=== PATIENT | female | born 1985 | race Caucasian/White ===

== ENCOUNTER 2016-10-16 17:05 | Emergency (ER) | payer BC ==
[~2016-10-16] VITALS: Ht 162.6 cm; Wt 90.0 kg
[~2016-10-16 17:05] MED LIST: LANTUS2P SC; NOVOLOGP2 SQ
[2016-10-16 17:07] VITALS: PULSE 82; RESP 18; TEMP 97.8; O2SAT 97
--- NOTE | 2016-10-16 18:49 | PD ---
HPI Chief Complaint: Skin Problem Time Seen by Provider: 18:43 Travel History International Travel<30 days: No Contact w/Intl Traveler<30days: No Traveled to known affect area: No History of Present Illness HPI 31-year-old female presents to the emergency room for evaluation of an abscess to her right anterior abdominal wall that started about one week ago. Patient states on day 1 there was a white head that she popped and was able to express purulent drainage but since then the redness, swelling, and pain has been worsening. Patient denies fever, chills, nausea, and vomiting. Denies history of abscess. No streaking. PFSH Past Medical History Diabetes: Yes (insulin dependent ) Immunizations Current: No ?: Not Past Surgical History Cholecystectomy: Yes Social History Alcohol Use: No Tobacco Use: No Substance Use: No Allergies-Medications (Allergen,Severity, Reaction): Coded Allergies: Penicillin (Verified Allergy, Severe, Rash, 10/16/16) Reported Meds & Prescriptions Reported Meds & Active Scripts Active No Active Prescriptions or Reported Medications Review of Systems Except as stated in HPI: all other systems reviewed are Neg Physical Exam Narrative GENERAL: Well-nourished, well-developed female in no acute distress. Afebrile. Ambulatory. SKIN: Warm and dry. There is an indurated area in the right anterior abdominal wall which measures about 2 cm in diameter. It is fluctuant with pointing and slight spontaneous drainage. There is a zone of inflammation around it but no lymphangitis. HEAD: Normocephalic. EYES: No scleral icterus. No injection or drainage. NECK: Supple, trachea midline. No JVD or lymphadenopathy. Data Data Last Documented VS Vital Signs Date Time Temp Pulse Resp B/P Pulse Ox O2 Delivery O2 Flow Rate FiO2 10/16/16 17:07 97.8 82 18 97 Room Air MDM Medical Decision Making Medical Screen Exam Complete: Yes Emergency Medical Condition: Yes Medical Record Reviewed: Yes Differential Diagnosis Abscess versus folliculitis versus hidradenitis suppurativa Narrative Course 31-year-old female presents to the emergency room for evaluation of an abscess to her right anterior abdominal wall that started 1 week ago. Patient states it was spontaneously draining on its own but seems to be worsening. No systemic signs of infection. Vital signs stable. Patient resting comfortably in bed. Physical exam reveals a recent abscess with surrounding inflammation but no lymphangitis in the right anterior abdominal wall. Abscesses drained, see procedure note for details. Return to the emergency room for worsening symptoms. She understands and agrees to this plan. Procedures Procedure Narrative INCISION AND DRAINAGE OF ABSCESS: The area was prepped and was sterilely draped. A subcutaneous wheal of 1% lidocaine with epinephrine with a total number 4 mL was used to anesthetize the area properly. A number 11 scalpel was used to make a 1 cm incision across the area of the abscess. The abscess was drained, complex loculations were broken down, and irrigated with normal saline. Cultures were obtained. Sterile dressing applied. Diagnosis Primary Impression: Cutaneous abscess of abdominal wall Referrals: Primary Care Physician Patient Instructions: Abscess (ED), General Instructions Additional Instructions: Rest and drink plenty of fluids. Take Bactrim as directed, until gone. Follow up with a primary care physician. Return to emergency room for worsening symptoms, as discussed. Med/Other Pt SpecificInfo: Prescription(s) given Scripts No Active Prescriptions or Reported Meds Disposition: 01 DISCHARGE HOME Condition: Stable Leticia Gordon Oct 16, 2016 18:49
[2016-10-16] MEDS ORDERED: BACT800T5 PO (18:50)
== END 2016-10-16 19:00 | disposition home or self-care (01) ==
LOC: NEPB 17:05
DX: L02.211 Cutaneous abscess of abdominal wall (principal); E11.9 Type 2 diabetes mellitus without complications; Z79.4 Long term (current) use of insulin
CPT/HCPCS: 10060; 86403; 87070; 87186; 87205

== ENCOUNTER → 2016-11-08 | Day surgery (SDC) | payer BC ==
[~2016-11-08] MED LIST changes: +BACT800T5 PO; +DEXAMETHASONE SOD PHOS 4 MG/ML VIAL ONE; +DEXTROSE 50% IN WATER 50 ML SYRINGE ONE; +EPINEPHrine HCL (1:1000) 1 MG/ML VIAL ONE; +LACTATED RINGER'S 1000 ML INJ 1,000 ML ONE; -LANTUS2P SC; +MIDAZOLAM HCL 2 MG/2 ML VIAL ONE; +MOXIFLOXACIN 0.5% OPHT SOLN 3 ML BTL ONE; -NOVOLOGP2 SQ; +ONDANSETRON HCL 4 MG/2 ML VIAL IV PUSH ONE; +PHENYLEPHRINE HCL 10% OPTH SOLN 5 ML BTL ONE; +PROPOFOL 200 MG/20 ML AMP IV ONE; +SODIUM CHLORIDE 0.9% INJ 10 ML ONE; +TETRACAINE 0.5% OPTH SOLN 15 ML BTL ONE; +TRIAMCINOLONE ACETONIDE 40 MG/ML VIAL ONE; +prednisoLONE ACETATE 1% OPHT SUSP 5 ML BTL ONE
--- NOTE | 2016-11-15 20:20 | MP ---
cc: RONEY JORDAN MD DATE OF SURGERY 11/09/2016 POSTOPERATIVE DIAGNOSIS Proliferative diabetic retinopathy, tractional retinal detachment, vitreous hemorrhage right eye. PROCEDURE Pars plana vitrectomy, tractional retinal detachment repair, endolaser, air-fluid exchange, right eye. COMPLICATIONS None BLOOD LOSS Less than 1 cc ANESTHESIA General, Dr. Vu INDICATIONS FOR PROCEDURE This is a pleasant young lady who presented with severe vision loss on her right eye. The patient was found to have a tractional retinal detachment, vitreous hemorrhage which was secondary to proliferative diabetic retinopathy, and severe retinal ischemia. The patient elected for surgery in hopes to salvage any possible vision. PROCEDURE NOTE After informed consent was obtained, the patient brought to the operating room, general anesthesia was established. The right eye was prepped and draped in a sterile fashion with Betadine in the conjunctival fornix. A three port pars plana vitrectomy was established with a self-retaining infusion cannula. Core vitreous was evacuated. The tractional retinal detachment was circumscribed and peripheral vitreous traction relieved. The tractional complexes were dissected free from the underlying retina and optic nerve. The retina had renewed mobility and allowed clear view to the macula and optic nerve. Endolaser was applied. Scleral depressive examination revealed no untreated retinal holes, tears or detachments. Partial air-fluid exchange was carried out. Trocars were removed and sclerotomies closed. Subconjunctival injection of Ancef and dexamethasone were given. The eye was patched with Tobramycin ointment. The patient was brought to the recovery room in stable condition and can continue followup with [facility] for her postoperative care. MD KARMA Wren/CORINNA /7:25 AM /8:14 PM JAVAN
== END | disposition home or self-care (01) ==
LOC: ESDC 06:53
PROVIDERS: ATTEND Ophthalmology
DX: E11.3591 Type 2 diabetes mellitus with proliferative diabetic retinopathy without macular edema, right eye (principal); H33.21 Serous retinal detachment, right eye; H43.11 Vitreous hemorrhage, right eye
CPT/HCPCS: 00145; 67113; 82948; J0171; J1100; J2250; J2405; J3010; J3301; J7120

== ENCOUNTER 2017-05-19 15:41 | Emergency (ER) | payer SELFPAY ==
[~2017-05-19] VITALS: Ht 162.6 cm; Wt 92.0 kg
[~2017-05-19 15:41] MED LIST changes: -DEXAMETHASONE SOD PHOS 4 MG/ML VIAL ONE; -DEXTROSE 50% IN WATER 50 ML SYRINGE ONE; -EPINEPHrine HCL (1:1000) 1 MG/ML VIAL ONE; -LACTATED RINGER'S 1000 ML INJ 1,000 ML ONE; -MIDAZOLAM HCL 2 MG/2 ML VIAL ONE; -MOXIFLOXACIN 0.5% OPHT SOLN 3 ML BTL ONE; -ONDANSETRON HCL 4 MG/2 ML VIAL IV PUSH ONE; -PHENYLEPHRINE HCL 10% OPTH SOLN 5 ML BTL ONE; -PROPOFOL 200 MG/20 ML AMP IV ONE; -SODIUM CHLORIDE 0.9% INJ 10 ML ONE; -TETRACAINE 0.5% OPTH SOLN 15 ML BTL ONE; -TRIAMCINOLONE ACETONIDE 40 MG/ML VIAL ONE; -prednisoLONE ACETATE 1% OPHT SUSP 5 ML BTL ONE
--- NOTE | 2017-05-19 17:42 | PD ---
HPI Chief Complaint: Chest Pain Time Seen by Provider: 17:30 Travel History International Travel<30 days: No Contact w/Intl Traveler<30days: No Traveled to known affect area: No History of Present Illness HPI 31-year-old female with history of insulin dependent diabetes here for evaluation of chest pain. The patient reports that for the last 2 weeks she has been having intermittent left-sided chest pains. Pain is now more constant , worse with movements and heavy lifting. She is unable to describe the pain, but states that it radiates to her back and is moderate. No dyspnea. No fevers , chills, cough, or recent illness. No known history of cardiac disease. No history of DVT or PE. PFSH Past Medical History Diabetes: Yes (TYPE 2) Patient Takes Glucophage: No Immunizations Current: No ?: Unknown LMP: 04/28/17 Past Surgical History Cholecystectomy: Yes Eye Surgery: Yes (retinal surgery) Social History Alcohol Use: No Tobacco Use: Yes (5 cig) Substance Use: No Allergies-Medications (Allergen,Severity, Reaction): Coded Allergies: Penicillin (Verified Allergy, Severe, Rash, 05/19/17) Reported Meds & Prescriptions Reported Meds & Active Scripts Active Bactrim DS (Sulfamethoxazole-Trimethoprim) 800-160 Mg Tab 1 Tab PO BID Review of Systems Except as stated in HPI: all other systems reviewed are Neg Physical Exam Narrative GENERAL: Well-developed, well-nourished, comfortable, no apparent distress. SKIN: Focused skin assessment warm/dry. HEAD: Atraumatic. Normocephalic. EYES: Pupils equal and round. No scleral icterus. No injection or drainage. ENT: Mucous membranes pink and moist. NECK: Trachea midline. No JVD. CARDIOVASCULAR: Regular rate and rhythm. No murmur appreciated. RESPIRATORY: No accessory muscle use. Clear to auscultation. Breath sounds equal bilaterally. GASTROINTESTINAL: Abdomen soft, non-tender, nondistended. MUSCULOSKELETAL: No obvious deformities. No clubbing. No cyanosis. No edema. NEUROLOGICAL: Awake and alert. No obvious cranial nerve deficits. Motor grossly within normal limits. Normal speech. PSYCHIATRIC: Appropriate mood and affect; insight and judgment normal. Data Data Last Documented VS Vital Signs Date Time Temp Pulse Resp B/P Pulse Ox O2 Delivery O2 Flow Rate FiO2 05/19/17 18:10 99 Room Air Orders Complete Blood Count With Diff (05/19/17 17:39) Comprehensive Metabolic Panel (05/19/17 17:39) D-Dimer (05/19/17 17:39) Ckmb (Isoenzyme) Profile (05/19/17 17:39) Troponin I (05/19/17 17:39) Iv Access Insert/Monitor (05/19/17 17:39) Electrocardiogram (05/19/17 17:39) Ecg Monitoring (05/19/17 17:39) Oximetry (05/19/17 17:39) Oxygen Administration (05/19/17 17:39) Chest, Single Ap (05/19/17 17:39) Sodium Chloride 0.9% Flush (Ns Flush) (05/19/17 17:45) Ed Urine Pregnancytest Poc (05/19/17 17:39) Ketorolac Inj (Toradol Inj) (05/19/17 18:15) Labs Laboratory Tests Test 05/19/17 05/19/17 18:05 19:19 White Blood Count 12.5 TH/MM3 Red Blood Count 4.81 MIL/MM3 Hemoglobin 13.1 GM/DL Hematocrit 38.2 % Mean Corpuscular Volume 79.4 FL Mean Corpuscular Hemoglobin 27.3 PG Mean Corpuscular Hemoglobin 34.3 % Concent Red Cell Distribution Width 13.9 % Platelet Count 303 TH/MM3 Mean Platelet Volume 8.8 FL Neutrophils (%) (Auto) 59.6 % Lymphocytes (%) (Auto) 31.1 % Monocytes (%) (Auto) 5.8 % Eosinophils (%) (Auto) 2.6 % Basophils (%) (Auto) 0.9 % Neutrophils # (Auto) 7.4 TH/MM3 Lymphocytes # (Auto) 3.9 TH/MM3 Monocytes # (Auto) 0.7 TH/MM3 Eosinophils # (Auto) 0.3 TH/MM3 Basophils # (Auto) 0.1 TH/MM3 CBC Comment DIFF FINAL Differential Comment D-Dimer Quantitative (PE/DVT) 0.20 MG/L FEU Sodium Level 135 MEQ/L Potassium Level 4.1 MEQ/L Chloride Level 101 MEQ/L Carbon Dioxide Level 25.2 MEQ/L Anion Gap 9 MEQ/L Blood Urea Nitrogen 16 MG/DL Creatinine 0.59 MG/DL Estimat Glomerular Filtration 119 ML/MIN Rate Random Glucose 262 MG/DL Calcium Level 8.7 MG/DL Total Bilirubin 0.2 MG/DL Aspartate Amino Transf 15 U/L (AST/SGOT) Alanine Aminotransferase 22 U/L (ALT/SGPT) Alkaline Phosphatase 87 U/L Total Creatine Kinase 59 U/L Troponin I LESS THAN 0.02 NG/ML Total Protein 6.9 GM/DL Albumin 3.2 GM/DL MDM Medical Decision Making Medical Screen Exam Complete: Yes Emergency Medical Condition: Yes Interpretation(s) EKG: Sinus, rate 69, normal axis, normal intervals, no acute ischemic abnormality. Differential Diagnosis Costochondritis/musculoskeletal pain, ACS, DVT, PE, pneumothorax, pericarditis, pneumonia Narrative Course Vital signs reviewed. CBC is unremarkable. CMP is remarkable for random glucose 262, otherwise unremarkable. Bicarbonate is normal at 25.2. She is not in DKA. Cardiac enzymes are negative. D-dimer is negative at 0.20. Chest x-ray: The lungs are clear. The patient was given IV Toradol with some improvement in pain. Her pain is very musculoskeletal in nature as it is worse with movements. It is also been going on for last 2 weeks. I do not believe her pain is cardiopulmonary in nature. She is stable for discharge home with outpatient follow-up with a primary care physician this week. She was informed on when to return to the emergency department. She verbalizes understanding and agreement with plan. Diagnosis Primary Impression: Costochondritis Additional Impression: Hyperglycemia Referrals: [facility] 3 days Additional Instructions: Follow-up with a primary care physician this week. Return to the emergency department for worsening symptoms or any other concerns. Disposition: 01 DISCHARGE HOME Condition: Stable Teodoro Shrestha MD May 19, 2017 17:42
[2017-05-19] MEDS ORDERED: SODIUM CHLORIDE 0.9% FLUSH 10 ML FLUSH IVF PRN (17:45)
[2017-05-19 18:10] VITALS: O2SAT 99
[2017-05-19] MEDS ORDERED: KETOROLAC TROMETHAMINE 30 MG/ML (IVP) VIAL IV PUSH ONE (18:15)
--- NOTE | 2017-05-19 18:16 | RADRPT ---
EXAM DATE/TIME: 05/19/2017 18:02 [place] COMPARISON: No previous studies available for comparison. INDICATIONS : Left sided chest pain for 2 weeks. MEDICAL HISTORY : None. SURGICAL HISTORY : None. ENCOUNTER: Initial ACUITY: 2 weeks PAIN SCORE: 4/10 LOCATION: Left chest FINDINGS: A single view of the chest demonstrates the lungs to be symmetrically aerated without evidence of mas s, infiltrate or effusion. The cardiomediastinal contours are unremarkable. Osseous structures are intact. CONCLUSION: The lungs are clear. Jonathan Hicks MD on May 19, 2017 at 18:14 Board Certified Radiologist. This report was verified electronically.
[2017-05-19 18:17] LABS: AUTOMATED NEUTROPHIL # 7.4 TH/MM3 (1.8-7.7); BASOPHIL # 0.1 TH/MM3 (0-0.2); BASOPHIL % 0.9 % (0.0-2.0); EOSINOPHIL # 0.3 TH/MM3 (0-0.4); EOSINOPHIL % 2.6 % (0.0-4.0); HEMATOCRIT 38.2 % (35.0-46.0); HEMO FLAGS DIFF FINAL; LYMPH % 31.1 % (9.0-44.0); LYMPHOCYTE # 3.9 TH/MM3 (1.0-4.8); MEAN CELL VOLUME 79.4 FL (80.0-100.0); MEAN CORPUSCULAR HEMOGLOBIN 27.3 PG (27.0-34.0); MEAN CORPUSCULAR HGB CONC 34.3 % (32.0-36.0); MONO % 5.8 % (0.0-8.0); NEUT % 59.6 % (16.0-70.0); PLATELET COUNT 303 TH/MM3 (150-450); RED BLOOD COUNT 4.81 MIL/MM3 (4.00-5.30); RED CELL DISTRIBUTION WIDTH 13.9 % (11.6-17.2); WHITE BLOOD COUNT 12.5 TH/MM3 (4.0-11.0)
[2017-05-19 20:02] LABS: ALKALINE PHOSPHATASE 87 U/L (45-117); ALT (GPT) 22 U/L (10-53); TOTAL BILIRUBIN ADULT 0.2 MG/DL (0.2-1.0)
[2017-05-19 20:31] LABS: ANION GAP 9 MEQ/L (5-15); AST (GOT) 15 U/L (15-37); BICARBONATE 25.2 MEQ/L (21.0-32.0); CHLORIDE 101 MEQ/L (98-107); GLOMERULAR FILTRATION RATE 119 ML/MIN (>89); POTASSIUM 4.1 MEQ/L (3.5-5.1); SODIUM (NA) 135 MEQ/L (136-145)
[2017-05-19 20:32] LABS: BLOOD UREA NITROGEN 16 MG/DL (7-18); CREATINE KINASE 59 U/L (26-192)
--- NOTE | 2017-05-20 13:09 | EKG ---
Date Performed: 05/19/2017 Time Performed: 17:49:25 PTAGE: 31 years EKG: Sinus rhythm NORMAL ECG NO PREVIOUS TRACING DOCTOR: Jameson Fagan Interpretating Date/Time 05/20/2017 13:08:57
== END 2017-05-19 21:11 | disposition home or self-care (01) ==
LOC: NEPD 15:41
DX: M94.0 Chondrocostal junction syndrome [Tietze] (principal); E11.65 Type 2 diabetes mellitus with hyperglycemia
CPT/HCPCS: 71010; 80053; 82550; 84484; 84703; 85025; 85379; 93005; 96374; 99285; J1885

== ENCOUNTER → 2017-12-12 | Day surgery (SDC) | payer BC ==
[~2017-12-12] MED LIST changes: +DEXAMETHASONE SOD PHOS 4 MG/ML VIAL ONE; +DEXTROSE 50% IN WATER 50 ML SYRINGE ONE; +EPINEPHrine HCL (1:1000) 1 MG/ML VIAL ONE; +LACTATED RINGER'S 1000 ML INJ 1,000 ML ONE; +MIDAZOLAM HCL 2 MG/2 ML VIAL ONE; +MOXIFLOXACIN 0.5% OPHT SOLN 3 ML BTL ONE; +ONDANSETRON HCL 4 MG/2 ML VIAL IV PUSH ONE; +PHENYLEPHRINE HCL 10% OPTH SOLN 5 ML BTL ONE; +PROPOFOL 200 MG/20 ML AMP IV ONE; +SODIUM CHLORIDE 0.9% INJ 10 ML ONE; +TETRACAINE 0.5% OPTH SOLN 15 ML BTL ONE; +TOBRAMYCIN/DEXAMETHASONE OPTH OINT 3.5 GM TUBE ONE; +ceFAZolin INJ 1,000 MG VIAL ONE; +prednisoLONE ACETATE 1% OPHT SUSP 5 ML BTL ONE
--- NOTE | 2017-12-18 15:56 | MP ---
cc: Joe Gatica MD DATE OF OPERATION: 12/12/2017 PREOPERATIVE DIAGNOSIS: Proliferative vitreoretinopathy, tractional retinal detachment, vitreous hemorrhage, left eye. POSTOPERATIVE DIAGNOSIS: Proliferative vitreoretinopathy, tractional retinal detachment, vitreous hemorrhage, left eye. PROCEDURE PERFORMED: Pars planar vitrectomy, tractional retinal detachment repair, endolaser, air fluid exchange, left eye. SURGEON: Joe Gatica MD ANESTHESIA: Dr. Vu general. ESTIMATED BLOOD LOSS Less than 1 mL COMPLICATIONS: None. INDICATIONS FOR PROCEDURE: This is a delightful patient with longstanding history of diabetes and proliferative diabetic retinopathy. The patient developed tractional detachment into the macula of her left eye, along vitreous hemorrhage. The patient elected for surgical correction. PROCEDURE NOTE: After informed consent was obtained, the patient wasbrought to the operating room, and general anesthesia was established. The left eye was prepped and draped in sterile fashion with Betadine in the conjunctival fornix. A 3 port pars planar vitrectomy was established with self-retaining infusion canula. Core vitreous was evacuated and the severe tractional complex was circumscribed. The traction complex was then segmented with vitrectomy and carefully removed and delaminated with curved scissors and ILM forceps. Scleral depressive examination revealed no untreated holes, tears or detachments in the periphery. Endolaser was applied, completing panretinal photocoagulation. Air fluid exchange was carried out. Trocar was removed and sclerotomies closed. Subconjunctival injections of Ancef and dexamethasone were given. The eye was patched with tobramycin ointment. The patient was brought to the recovery room in stable condition. Continue to followup with [facility] for her postoperative care. MD JANNETH Castañeda/GORDO , 10:26 PM , 12:36 AM
== END | disposition home or self-care (01) ==
LOC: ESDC 06:47
PROVIDERS: ATTEND Ophthalmology
DX: E11.3532 Type 2 diabetes mellitus with proliferative diabetic retinopathy with traction retinal detachment not involving the macula, left eye (principal); H43.12 Vitreous hemorrhage, left eye; Z79.4 Long term (current) use of insulin
CPT/HCPCS: 00145; 67113; 82948; J0171; J0690; J1100; J2250; J2405; J3010; J7120

== ENCOUNTER 2018-02-27 12:42 | Emergency (ER) | payer BC ==
[~2018-02-27] VITALS: Ht 162.6 cm; Wt 93.5 kg
[~2018-02-27 12:42] MED LIST changes: -DEXAMETHASONE SOD PHOS 4 MG/ML VIAL ONE; -DEXTROSE 50% IN WATER 50 ML SYRINGE ONE; -EPINEPHrine HCL (1:1000) 1 MG/ML VIAL ONE; -LACTATED RINGER'S 1000 ML INJ 1,000 ML ONE; -MIDAZOLAM HCL 2 MG/2 ML VIAL ONE; -MOXIFLOXACIN 0.5% OPHT SOLN 3 ML BTL ONE; -ONDANSETRON HCL 4 MG/2 ML VIAL IV PUSH ONE; -PHENYLEPHRINE HCL 10% OPTH SOLN 5 ML BTL ONE; -PROPOFOL 200 MG/20 ML AMP IV ONE; -SODIUM CHLORIDE 0.9% INJ 10 ML ONE; -TETRACAINE 0.5% OPTH SOLN 15 ML BTL ONE; -TOBRAMYCIN/DEXAMETHASONE OPTH OINT 3.5 GM TUBE ONE; -ceFAZolin INJ 1,000 MG VIAL ONE; -prednisoLONE ACETATE 1% OPHT SUSP 5 ML BTL ONE
[2018-02-27 12:50] VITALS: BP 194/84; PULSE 89; RESP 15; TEMP 98.9; O2SAT 100
[2018-02-27 13:31] LABS: BACTERIA, URINE OCC /hpf; BILIRUBIN, URINE NEG (NEG); BLOOD, URINE TRACE (NEG); GLUCOSE,URINE 1000 mg/dL (NEG); KETONE, URINE TRACE mg/dL (NEG); NITRITE,URINE NEG (NEG); PH, URINE 5.5 (5.0-8.5); SQUAMOUS EPITHELIAL CELL URINE 1 /hpf (0-5); URINE COLOR LIGHT-YELLOW (YELLW/STRAW); URINE LEUKOCYTE ESTERASE LARGE (NEG); WHITE BLOOD CELL CLUMPS FEW
[2018-02-27] MEDS ORDERED: NOVOLOGP2 SQ (14:49)
[2018-02-27] MEDS ORDERED: LANTINJ SQ (14:49)
--- NOTE | 2018-02-27 14:58 | PD ---
HPI Chief Complaint: Abdominal Pain Time Seen by Provider: 14:58 Travel History International Travel<30 days: No Contact w/Intl Traveler<30days: No Traveled to known affect area: No History of Present Illness HPI 32-year-old female came to the emergency room with history of lower abdominal pain radiating to her back. Patient says this has been going on for past couple days. She has associated nausea and vomited couple times. She also has fever and chills. Patient was afebrile in the emergency room. She took Advil this morning. She has history of diabetes that is insulin-dependent. Her blood sugar this morning was 370. There was a UA done in triage prior to patient coming in side the emergency room. Patient also says that she has been having some difficulty breathing for past 1 week. She feels like she cannot get enough breath in. No aggravating or relieving factors associated to the pain. PFSH Past Medical History Narrative Medical List of her past medical, surgical, social and family history reviewed from the nursing note Diabetes: Yes Patient Takes Glucophage: No Immunizations Current: No ?: Unknown LMP: 01/14/18 Past Surgical History Cholecystectomy: Yes Eye Surgery: Yes (retinal surgery) Social History Alcohol Use: No Tobacco Use: No (5 cig) Substance Use: No Allergies-Medications (Allergen,Severity, Reaction): Coded Allergies: penicillin G (Unverified Allergy, Severe, Rash, 02/27/18) Comments List of her allergies reviewed from the nursing note Reported Meds & Prescriptions Reported Meds & Active Scripts Active Bactrim DS (Sulfamethoxazole-Trimethoprim) 800-160 Mg Tab 1 Tab PO BID Ibuprofen 600 Mg Tab 600 Mg PO TID Reported Lantus Solostar Pen Inj (Insulin Glargine) 300 Unit/3 Ml Pen 70 Units SQ HS Novolog Inj (Insulin Aspart) 1,000 Unit/10 Ml Vial 0 SQ DIRECTED Sliding Scale as directed. Narrative Medication List of her home medications reviewed from the nursing note Review of Systems Except as stated in HPI: all other systems reviewed are Neg General / Constitutional: Positive: Fever, Chills Respiratory: Positive: Shortness of Breath Gastrointestinal: Positive: Nausea, Vomiting Genitourinary: Positive: Pelvic Pain Physical Exam Narrative GENERAL: Awake, alert, moderate distress SKIN: Focused skin assessment warm/dry. HEAD: Atraumatic. Normocephalic. EYES: Pupils equal and round. No scleral icterus. No injection or drainage. ENT: No nasal bleeding or discharge. Dry mucous membrane NECK: Trachea midline. No JVD. CARDIOVASCULAR: Regular rate and rhythm. No murmur appreciated. RESPIRATORY: No accessory muscle use. Clear to auscultation. Breath sounds equal bilaterally. GASTROINTESTINAL: Abdomen soft, non-tender, nondistended. Hepatic and splenic margins not palpable. MUSCULOSKELETAL: No obvious deformities. No clubbing. No cyanosis. No edema. NEUROLOGICAL: Awake and alert. No obvious cranial nerve deficits. Motor grossly within normal limits. Normal speech. PSYCHIATRIC: Appropriate mood and affect; insight and judgment normal. Data Data Last Documented VS Orders Orders Urinalysis - C+S If Indicated (02/27/18 12:53) Ed Urine Pregnancytest Poc (02/27/18 12:53) Urine Culture (02/27/18 13:01) Complete Blood Count With Diff (02/27/18:) Comprehensive Metabolic Panel (02/27/18:18) Iv Access Insert/Monitor (02/27/18:18) Ecg Monitoring (02/27/18 15:18) Oximetry (02/27/18 15:18) Sodium Chlor 0.9% 1000 Ml Inj (Ns 1000 M (02/27/18 15:18) Sodium Chloride 0.9% Flush (Ns Flush) (02/27/18 15:30) Ceftriaxone Inj (Rocephin Inj) (02/27/18 15:30) Blood Culture (02/27/18 15:18) Lactic Acid (02/27/18:18) Blood Glucose (02/27/18 15:18) Sodium Chlor 0.9% 1000 Ml Inj (Ns 1000 M (02/27/18 15:30) Beta Hydroxybutyrate (Acetone) (02/27/18 15:20) Ed Discharge Order (02/27/18 17:44) Labs Laboratory Tests Test 02/27/18 13:01 02/27/18 16:20 Urine Color LIGHT-YELLOW Urine Turbidity HAZY Urine pH 5.5 Urine Specific [place] 1.019 Urine Protein 30 mg/dL Urine Glucose (UA) 1000 mg/dL Urine Ketones TRACE mg/dL Urine Occult Blood TRACE Urine Nitrite NEG Urine Bilirubin NEG Urine Urobilinogen LESS THAN 2.0 MG/DL Urine Leukocyte Esterase LARGE Urine RBC 6 /hpf Urine WBC 143 /hpf Urine WBC Clumps FEW Urine Squamous Epithelial Cells 1 /hpf Urine Bacteria OCC /hpf Microscopic Urinalysis Comment CULTURE INDICATED White Blood Count 8.9 TH/MM3 Red Blood Count 4.44 MIL/MM3 Hemoglobin 11.6 GM/DL Hematocrit 34.4 % Mean Corpuscular Volume 77.6 FL Mean Corpuscular Hemoglobin 26.0 PG Mean Corpuscular Hemoglobin Concent 33.5 % Red Cell Distribution Width 13.3 % Platelet Count 247 TH/MM3 Mean Platelet Volume 8.5 FL Neutrophils (%) (Auto) 72.4 % Lymphocytes (%) (Auto) 18.2 % Monocytes (%) (Auto) 6.5 % Eosinophils (%) (Auto) 2.2 % Basophils (%) (Auto) 0.7 % Neutrophils # (Auto) 6.5 TH/MM3 Lymphocytes # (Auto) 1.6 TH/MM3 Monocytes # (Auto) 0.6 TH/MM3 Eosinophils # (Auto) 0.2 TH/MM3 Basophils # (Auto) 0.1 TH/MM3 CBC Comment DIFF FINAL Differential Comment Blood Urea Nitrogen 15 MG/DL Creatinine 0.64 MG/DL Random Glucose 221 MG/DL Total Protein 7.8 GM/DL Albumin 3.2 GM/DL Calcium Level 8.4 MG/DL Alkaline Phosphatase 94 U/L Aspartate Amino Transf (AST/SGOT) 17 U/L Alanine Aminotransferase (ALT/SGPT) 21 U/L Total Bilirubin 0.3 MG/DL Sodium Level 135 MEQ/L Potassium Level 3.6 MEQ/L Chloride Level 103 MEQ/L Carbon Dioxide Level 22.2 MEQ/L Anion Gap 10 MEQ/L Estimat Glomerular Filtration Rate 108 ML/MIN Lactic Acid Level 1.2 mmol/L B-Hydroxybutyrate 0.61 MMOL/L [facility] Medical Decision Making Medical Screen Exam Complete: Yes Emergency Medical Condition: Yes Medical Record Reviewed: Yes Differential Diagnosis UTI, pyelonephritis, sepsis, DKA Narrative Course 3:45 PM UA suggestive of significant UTI and glucosuria. I have ordered blood test and awaiting for the results. Patient is getting 2 L of IV fluid bolus and IV Rocephin. 5:03 PM awaiting for the blood test results. Case has been signed over to the oncoming ER physician. Bedside blood glucose was 225. Procedures EKG Prior to Arrival: No Scripts Sulfamethoxazole-Trimethoprim (Bactrim DS) 800-160 Mg Tab 1 TAB PO BID for Infection, #20 TAB 0 Refills Prov: Bora Ivan MD 02/27/18 Ibuprofen (Ibuprofen) 600 Mg Tab 600 MG PO TID for Pain, #21 TAB 0 Refills Prov: Bora Ivan MD 02/27/18 Ryan Tejada MD February 27, 2018 14:58
[2018-02-27] MEDS ORDERED: SODIUM CHLOR 0.9% 1000 ML INJ 1,000 ML IV SCH (15:18)
[2018-02-27] MEDS ORDERED: SODIUM CHLORIDE 0.9% FLUSH 10 ML FLUSH IV FLUSH PRN (15:30)
[2018-02-27] MEDS ORDERED: SODIUM CHLOR 0.9% 1000 ML INJ 1,000 ML IV ONE (15:30)
[2018-02-27] MEDS ORDERED: cefTRIAXone INJ 1,000 MG in SODIUM CHLORIDE 0.9% INJ 100 ML IV ONE (15:30)
[2018-02-27 17:06] LABS: AUTOMATED NEUTROPHIL # 6.5 TH/MM3 (1.8-7.7); BASOPHIL # 0.1 TH/MM3 (0-0.2); BASOPHIL % 0.7 % (0.0-2.0); EOSINOPHIL # 0.2 TH/MM3 (0-0.4); EOSINOPHIL % 2.2 % (0.0-4.0); HEMATOCRIT 34.4 % (35.0-46.0); HEMOGLOBIN 11.6 GM/DL (11.6-15.3); LYMPH % 18.2 % (9.0-44.0); LYMPHOCYTE # 1.6 TH/MM3 (1.0-4.8); MEAN CELL VOLUME 77.6 FL (80.0-100.0); MEAN CORPUSCULAR HGB CONC 33.5 % (32.0-36.0); MEAN PLATELET VOLUME 8.5 FL (7.0-11.0); MONO % 6.5 % (0.0-8.0); MONOCYTE # 0.6 TH/MM3 (0-0.9); NEUT % 72.4 % (16.0-70.0); PLATELET COUNT 247 TH/MM3 (150-450); RED BLOOD COUNT 4.44 MIL/MM3 (4.00-5.30); RED CELL DISTRIBUTION WIDTH 13.3 % (11.6-17.2); WHITE BLOOD COUNT 8.9 TH/MM3 (4.0-11.0)
[2018-02-27 17:31] LABS: ALBUMIN 3.2 GM/DL (3.4-5.0); ALT (GPT) 21 U/L (10-53); AST (GOT) 17 U/L (15-37); BICARBONATE 22.2 MEQ/L (21.0-32.0); BLOOD UREA NITROGEN 15 MG/DL (7-18); CALCIUM 8.4 MG/DL (8.5-10.1); CHLORIDE 103 MEQ/L (98-107); CREATININE 0.64 MG/DL (0.50-1.00); GLOMERULAR FILTRATION RATE 108 ML/MIN (>89); GLUCOSE,RANDOM 221 MG/DL (74-106); SODIUM (NA) 135 MEQ/L (136-145)
[2018-02-27 17:33] LABS: ALKALINE PHOSPHATASE 94 U/L (45-117); TOTAL BILIRUBIN ADULT 0.3 MG/DL (0.2-1.0); TOTAL PROTEIN 7.8 GM/DL (6.4-8.2)
[2018-02-27] MEDS ORDERED: BACT800T5 PO (17:44)
[2018-02-27] MEDS ORDERED: IBUP-232 PO (17:44)
--- NOTE | 2018-02-27 17:44 | PD ---
Physical Exam Narrative Patient was seen by ED physician and signed out to me. Data Data Last Documented VS Vital Signs Date Time Temp Pulse Resp B/P (MAP) Pulse Ox O2 Delivery O2 Flow Rate FiO2 02/27/18 12:50 98.9 89 15 194/84 (120) 100 Orders Orders Urinalysis - C+S If Indicated (02/27/18 12:53) Ed Urine Pregnancytest Poc (02/27/18 12:53) Urine Culture (02/27/18 13:01) Complete Blood Count With Diff (02/27/18 15:18) Comprehensive Metabolic Panel (02/27/18 15:18) Iv Access Insert/Monitor (02/27/18:18) Ecg Monitoring (02/27/18:18) Oximetry (02/27/18:) Sodium Chlor 0.9% 1000 Ml Inj (Ns 1000 M (02/27/18 15:18) Sodium Chloride 0.9% Flush (Ns Flush) (02/27/18 15:30) Ceftriaxone Inj (Rocephin Inj) (02/27/18 15:30) Blood Culture (02/27/18 15:18) Lactic Acid (02/27/18 15:18) Blood Glucose (02/27/18 15:18) Sodium Chlor 0.9% 1000 Ml Inj (Ns 1000 M (02/27/18 15:30) Beta Hydroxybutyrate (Acetone) (02/27/18 15:20) Labs Laboratory Tests Test 02/27/18 13:01 02/27/18 16:20 Urine Color LIGHT-YELLOW Urine Turbidity HAZY Urine pH 5.5 Urine Specific [place] 1.019 Urine Protein 30 mg/dL Urine Glucose (UA) 1000 mg/dL Urine Ketones TRACE mg/dL Urine Occult Blood TRACE Urine Nitrite NEG Urine Bilirubin NEG Urine Urobilinogen LESS THAN 2.0 MG/DL Urine Leukocyte Esterase LARGE Urine RBC 6 /hpf Urine WBC 143 /hpf Urine WBC Clumps FEW Urine Squamous Epithelial Cells 1 /hpf Urine Bacteria OCC /hpf Microscopic Urinalysis Comment CULTURE INDICATED White Blood Count 8.9 TH/MM3 Red Blood Count 4.44 MIL/MM3 Hemoglobin 11.6 GM/DL Hematocrit 34.4 % Mean Corpuscular Volume 77.6 FL Mean Corpuscular Hemoglobin 26.0 PG Mean Corpuscular Hemoglobin Concent 33.5 % Red Cell Distribution Width 13.3 % Platelet Count 247 TH/MM3 Mean Platelet Volume 8.5 FL Neutrophils (%) (Auto) 72.4 % Lymphocytes (%) (Auto) 18.2 % Monocytes (%) (Auto) 6.5 % Eosinophils (%) (Auto) 2.2 % Basophils (%) (Auto) 0.7 % Neutrophils # (Auto) 6.5 TH/MM3 Lymphocytes # (Auto) 1.6 TH/MM3 Monocytes # (Auto) 0.6 TH/MM3 Eosinophils # (Auto) 0.2 TH/MM3 Basophils # (Auto) 0.1 TH/MM3 CBC Comment DIFF FINAL Differential Comment Blood Urea Nitrogen 15 MG/DL Creatinine 0.64 MG/DL Random Glucose 221 MG/DL Total Protein 7.8 GM/DL Albumin 3.2 GM/DL Calcium Level 8.4 MG/DL Alkaline Phosphatase 94 U/L Aspartate Amino Transf (AST/SGOT) 17 U/L Alanine Aminotransferase (ALT/SGPT) 21 U/L Total Bilirubin 0.3 MG/DL Sodium Level 135 MEQ/L Potassium Level 3.6 MEQ/L Chloride Level 103 MEQ/L Carbon Dioxide Level 22.2 MEQ/L Anion Gap 10 MEQ/L Estimat Glomerular Filtration Rate 108 ML/MIN B-Hydroxybutyrate 0.61 MMOL/L [facility] Supervised Visit with MICHAEL: No Interpretation(s) 1737 PM. CBC WBC 8.9. Hemoglobin 11.6 hematocrit 34.4. MCV 77.6. 72 neutrophil. Sodium 135. Glucose 221. Lactic acid 1.2. Beta hydroxybutyrate 0.61. UA positive for WBC RBC and bacteria. Narrative Course Patient received Rocephin 1 g IV and normal saline solution 1 L IV bolus. Patient is feeling much better. No CVA tenderness on examination. Diagnosis Primary Impression: UTI (urinary tract infection) Qualified Codes: N30.00 - Acute cystitis without hematuria Additional Impression: Hyperglycemia Patient Instructions: General Instructions Additional Instruction: Bactrim DS as directed. Accu-Chek blood sugar daily. Ibuprofen for back pain. Follow-up with personal physician. Return if worse. Med/Other Pt SpecificInfo: Prescription(s) given Scripts Sulfamethoxazole-Trimethoprim (Bactrim DS) 800-160 Mg Tab 1 TAB PO BID for Infection, #20 TAB 0 Refills Prov: Bora Ivan MD 02/27/18 Ibuprofen (Ibuprofen) 600 Mg Tab 600 MG PO TID for Pain, #21 TAB 0 Refills Prov: Bora Ivan MD 02/27/18 Disposition: 01 DISCHARGE HOME Condition: Stable Bora Ivan MD February 27, 2018 17:44
== END 2018-02-27 18:09 | disposition home or self-care (01) ==
LOC: NEPD 12:42
DX: N30.00 Acute cystitis without hematuria (principal); E11.65 Type 2 diabetes mellitus with hyperglycemia; Z79.4 Long term (current) use of insulin
CPT/HCPCS: 80053; 81001; 82010; 83605; 84703; 85025; 87040; 87077; 87086; 87186; 96365; 99284; J0696; J7030